=== PATIENT | female | born 1965 | race Caucasian/White ===

== ENCOUNTER → 2023-12-13 08:00 | Outpatient (REF) | payer OTHER, SELFPAY ==
[2023-12-13 08:23] VITALS: BMI 30.3
[2023-12-13 09:38] LABS: % Basophils 0.5 % (0-2); % Immature Granulocytes 0.5 % (0-0.5); % Lymphocytes 26.3 % (20.5-51.1); % Monocytes 5.7 % (1.7-9.3); Absolute Basophils 0.1 10^3/uL (0-0.2); Absolute Eosinophils 0.2 10^3/uL (0-0.7); Absolute Immature Granulocytes 0.1 10^3/uL (0-0.05); Absolute Lymphocytes 2.9 10^3/uL (1.2-3.4); Absolute Monocytes 0.6 10^3/uL (0.1-0.6); Absolute Neutrophils 7.1 10^3/uL (1.4-6.5); Hematocrit 33.5 % (37.0-47.0); Hemoglobin 11.2 g/dL (12.0-16.0); Mean Corp Hgb Conc. 33.4 g/dL (33.0-37.0); Mean Corpuscular Hgb 28.6 pg (27.0-31.0); Mean Corpuscular Volume 85.7 fL (81.0-99.0); Mean Platelet Volume 8.9 fL (7.4-10.4); Nucleated Red Blood Cells % 0 %; Platelet Count 326 10^3/uL (130-400); Red Blood Cell Count 3.91 10^6/uL (4.20-5.40); Red Cell Dist. Width 13.7 % (11.5-14.5)
[2023-12-13 09:42] LABS: INR 1.12; PT 14.3 Sec (11.4-14.6)
[2023-12-13 09:43] LABS: ALT (SGPT) 19 U/L (0-35); AST (SGOT) 19 U/L (14-36); Albumin 4.5 g/dl (3.5-5.0); Alkaline Phosphatase 58 U/L (38-126); Blood Urea Nitrogen 17 mg/dl (7-17); Calcium 9.8 mg/dl (8.4-10.2); Carbon Dioxide 26 mmol/L (22-30); Chloride 105 mmol/L (98-107); Estimated Creatinine Clearance 123 ml/min; Glucose 84 mg/dl (70-99); Magnesium 1.9 mg/dl (1.6-2.3); Potassium 4.2 mmol/L (3.5-5.1); Sodium 138 mmol/L (135-145); Total Bilirubin 0.3 mg/dl (0.2-1.3); Total Protein 6.9 g/dl (6.3-8.2); eGFR > 60.00
--- NOTE | 2023-12-16 12:03 | W.PN.UPDATE ---
Update Note
Progress Note Update
Large solid R ML lung mass incidentally noted on CT--hx tobacco with new anemia. --faxed to PCP Dr. Holley--LM as well-spoke to patient who is aware.
--- NOTE | 2023-12-23 14:06 | OID.L.PAT ---
Pulmonary Nodule Pat Letter
- -
12/23/23
RAMÓN MUNOZ
[id number] [facility]
[place], [place] [address]
Jewel MELGAR,
A pulmonary nodule was seen on an imaging study done by [facility]. This was reviewed by the [facility] Pulmonary Nodule Advisory Board and the following recommendation was made:
Recommendation: PET CT now and follow-up with head cd reactor operator
If you have any questions, please do not hesitate to contact your primary care physician. If you are in need of a Physician, you can go to [email or web address] and click on 'Find a Provider'. Type 'Family Medicine' in the search.
Oncology Nurse Navigator
[facility]
[phone]
--- NOTE | 2023-12-23 14:07 | OID.L.REC ---
Pulmonary Nodule Follow Up
- Recommendation
12/23/23
Pulmonary Nodule Review Recommendations
Your patient, RAMÓN MUNOZ, had a pulmonary nodule on an imaging study done 12/13/2023 in the [facility]iology Department.
This was reviewed by the [facility] Pulmonary Nodule Advisory Board and the following recommendation was made:
Recommendation: PET CT now and follow-up with hand drawer in helper
If you have any questions please do not hesitate to contact us.
Sincerely,
Oncology Nurse Navigator
[facility]
[phone]
== END ==
LOC: SDSPAT 08:00
PROVIDERS: ATTENDING PHYSICIAN Internal Medicine Cardiovascular Disease; FAMILY PHYSICIAN Internal Medicine; OTHER PHYSICIAN Internal Medicine Cardiovascular Disease
DX: Z01.818 Encounter for other preprocedural examination (principal); I48.0 Paroxysmal atrial fibrillation; I48.92 Unspecified atrial flutter
CPT/HCPCS: 36415; 75572; 80053; 83735; 85025; 85610; 86850; 86900; 86901; 93005; Q9967

== ENCOUNTER 2025-02-16 06:01 | Day surgery (SDC) | payer OTHER, SELFPAY ==
[2025-02-16] VITALS (14 sets, daily range): BP systolic 72–133; BP diastolic 33–88; BMI 32.2
[2025-02-16 08:35] LABS: ACT-LR - POC 219 Seconds (116-155)
[2025-02-16 08:55] LABS: ACT-LR - POC 240 Seconds (116-155)
--- NOTE | 2025-02-16 09:01 | ITS.CL.ABL ---
[employer] - Ablation
Ablation
Procedure Report:
ELECTROPHYSIOLOGY ABLATION STUDY
DATE:: February 16, 2025�����������������������������REFERRING: Dr. Virgil Cruz
INDICATION: Paroxysmal supraventricular tachycardia in the form of atrial fibrillation.��Prior history of typical atrial flutter. Prior history of right middle lobectomy.
HISTORY: See H and P.��As above
ANTIARRHYTHMIC DRUG: Diltiazem
PRE-PROCEDURE NAZIA: No atrial thrombus
PRESENTING RHYTHM: Sinus bradycardia
'TIME-OUT':��called and confirmed.
SEDATION/ANESTHESIA:��provided via the anesthesia department using general anesthesia (LMA).
INTRAVENOUS/ARTERIAL ACCESS:
Right femoral venous - 8Fr
Left femoral venous - 8 Fr, 6 Fr
Ultrasound guidance for bilateral femoral vein access was utilized by me to obtain access with demonstration of normal anatomy
CHADS-VASC Score:
HAS-Bled Score
PROCEDURE:
1.��A decapolar CS catheter was placed within the CS for mapping and pacing.��This was also used as the reference catheter for the 3-D map.
2. The intracardiac ultrasound catheter was positioned in the RA to identify the FO for targeting of transseptal puncture, assist��in identification of the pulmonary vein ostia, monitoring pre and post ablation pulmonary vein flow velocities,
monitoring for 'bubble' formation during RF application as a sign of thermal injury,��and to monitor for pericardial effusion during mapping and ablation procedure.���Left atrial size, LV ejection fraction, and pulmonary vein flows were monitored
pre and post ablation procedure. The other valves were inspected and found to be free of significant regurgitation or stenosis.
3.��Half of the calculated heparin bolus was administered prior to the first transeptal puncture.��Transseptal puncture was performed to diagnose RA and LA pressure so that safety of LA mapping and ablation could be further assessed, and to access
the left atrium and pulmonary veins for mapping and ablation.��This entailed advancing an 8 Fr SL-1 sheath with dilator into the superior vena cava and withdrawing both (monitoring intracardiac ultrasound, fluoroscopy and tip pressure) with the tip
oriented toward the atrial septum.��The fossa ovalis was engaged (indicated by sudden displacement of the sheath tip as well as tenting of the fossa seen on intracardiac ultrasound).��Left atrial access required a pass with the Brockenbrough needle
extended.��Left atrial catheter position was confirmed by pressure monitoring (RA mean pressure 6 mm Hg and LA mean presure 14 mm Hg), LA saturation (99%),��as well as fluoroscopy.��The sheath was advanced over the dilator and positioned in the left
atrium.��This procedure was repeated for the Agilis sheath.��The remainder of the calculated heparin bolus was administered and heparin was
infused to maintain ACT at 300 -350 seconds throughout the case.
4.��RA pacing was performed via the proximal decapolar poles and LA pacing was performed via the distal decapolr poles.
5. A quadrapolar catheter was first positioned at the His position for His Bundle recording which was tagged via the 3-D Navex sytem, and then passed to the RVA for RV pacing and recording.
6. The ablation catheter was positioned through one of the transeptal seaths and a 20 pole ring mapping catheter was positioned through the second seath into the LA and then the ostia of the LIPV, LSPV, RSPV and the RIPV.��
7.��Next, a 3-D map was created using Navex.���A 3-D reconstructed CT image was compared to the 3-D Navex map to assist in anatomic interpretation, mapping and ablation.��The CT image and the NavX image were fused.
8. First transseptal was performed and the lightest catheter performed 9 mm lesions in circumferential fashion on the left and the right veins as well as a roof and floor line and posterior wall substrate modification. This led to entrance and
exit block in all 4 pulmonary veins, the left atrial posterior wall as well as the roof and the floor.
9. An RF line was also placed at the IVC-TVA isthmus to interupt the potential typical atrial flutter circuit.��Radiofrequency was delivered right at the annulus and PFA was delivered in a deep pouch in the mid isthmus back to the IVC. Intra
isthmus conduction time of 136 ms bidirectionally was noted with persistent bidirectional block. Intracardiac ultrasound was utilized for imaging.
TOTAL FLOURO TIME: 8.6 minutes 83 mGy
TOTAL RF DURATION: 15 seconds
REVERSAL OF HEPARIN: 35 mg of protamine, slow IV administration
COMPLICATIONS:
None
Intracardiac US shows no pericardial effusion post ablation.
SUMMARY:��
Complex left atrial mapping and ablation.
Isolation of all 4 pulmonary veins as above. Roof, posterior wall substrate, and floor line for posterior wall isolation and CTI flutter ablation
RECOMMENDATIONS:
1. Ambulate in 4 hours
2. Resume anticoagulation
3.��Consider same-day discharge
4.��Continue other medicines
Copy to: Dr. Virgil cruz
--- NOTE | 2025-02-16 13:47 | W.PN.UPDATE ---
Update Note
Progress Note Update
59 yo WF s/p PVI (Same day). She denies cp, sob, jacque diet, voiding, amb w/o dizziness, EKG SR, R fem site c/d/i no HT, soft. She will resume Eliquis tonight and continue Diltazem. Activity restrictions reviewed. She will f/u Dr. Jimenez in 3 mo. She
is for d/c home after 2pm.
== END 2025-02-16 14:05 | disposition home or self-care (01) ==
LOC: CATH 06:01
PROVIDERS: ATTENDING PHYSICIAN Internal Medicine Cardiovascular Disease; OTHER PHYSICIAN Internal Medicine Cardiovascular Disease
DX: I48.0 Paroxysmal atrial fibrillation (principal); I48.3 Typical atrial flutter; I48.91 Unspecified atrial fibrillation; I47.19 Other supraventricular tachycardia; Z90.2 Acquired absence of lung [part of]; Z98.890 Other specified postprocedural states
CPT/HCPCS: C1894; C1730; C1733; C1766; C1892; C1759; 36415; 75572; 80053; 83735; 85025; 85027; 85347; 85610; 86850; 86900; 86901; 93005; 93655; 93656; 93657; Q9967